=== PATIENT | female | born 1940 | race Caucasian/White ===

== ENCOUNTER 2018-04-21 05:40 | Inpatient (IN) ==
[2018-04-21] MEDS ORDERED: Metoprolol Tartrate 25 MG Tablet PO ONE (06:15)
[2018-04-21] MEDS ORDERED: Chlorhexidine Gluconate 2% 1 Pack (2 Cloths) TOPICAL ONE (06:15)
[2018-04-21] MEDS ORDERED: ceFAZolin 2 GM IV; once IV.SIG ONE (06:30)
[2018-04-21] MEDS ORDERED: Sodium Chlor 0.9% Inj 500 ML IV.SIG SCH (07:00)
[2018-04-21] MEDS ORDERED: Bupivacaine/Epinephrine Inj 0.25% 50 ML Vial ONE (11:31)
[2018-04-21] MEDS ORDERED: ceFAZolin 1 GM Premix Inj 2 GM/100 ML FROZ.PIGGY IV.SIG ONE (11:55)
[2018-04-21] MEDS ORDERED: Morphine Sulfate Inj 2 MG/ML Vial IV.PUSH PRN (13:07)
[2018-04-21] MEDS ORDERED: Promethazine 25 MG Supp RECTAL PRN (13:07)
[2018-04-21] MEDS ORDERED: Post-op Orders (for Pharmacy) OTHER ONE (13:07)
[2018-04-21] MEDS ORDERED: Bisacodyl 10 MG Supp RECTAL PRN (13:07)
[2018-04-21] MEDS ORDERED: fentaNYL Citrate Inj 100 MCG/2 ML Ampul ONE (13:41)
[2018-04-21] MEDS ORDERED: ceFAZolin Inj 1,000 MG in Sodium Chlor 0.9% Inj 100 ML IV.SIG SCH (14:00)
[2018-04-21] MEDS: Sod Chloride 0.9% Inj 1,000 ML IV.CONT SCH (14:04)
[2018-04-21] MEDS ORDERED: *morphine SULFATE 4 MG/ML PERIprocedure ONLY ONE (14:40)
[2018-04-21] MEDS: Senna/Docusate Sodium 8.6/50 MG Tablet PO SCH (20:53)
[2018-04-21] MEDS: Metoprolol Tartrate 50 MG Tablet PO SCH (20:55)
[2018-04-21] MEDS: ceFAZolin 1 GM Premix Inj 1 GM/50 ML FROZ.PIGGY IV.SIG SCH (20:56)
[2018-04-21] MEDS ORDERED: LEVOCETIRIZINE 5 MG PO SCH (21:00)
[2018-04-22] MEDS: ceFAZolin 1 GM Premix Inj 1 GM/50 ML FROZ.PIGGY IV.SIG SCH ×2 (04:44→12:00)
[2018-04-22] MEDS: Sod Chloride 0.9% Inj 1,000 ML IV.CONT SCH ×2 (04:44→10:08)
[2018-04-22] MEDS ORDERED: Lisinopril 20 MG Tablet PO SCH (09:00)
[2018-04-22] MEDS ORDERED: Fenofibrate 145 MG Tablet PO SCH (09:00)
[2018-04-22] MEDS ORDERED: hydroCHLOROthiazide 25 MG Tablet PO SCH (09:00)
[2018-04-22] MEDS: Senna/Docusate Sodium 8.6/50 MG Tablet PO SCH (10:05)
[2018-04-22] MEDS: Metoprolol Tartrate 50 MG Tablet PO SCH (10:06)
--- NOTE | 2018-04-22 16:58 | P.PNGS ---
Subjective Patient reports: tolerating liquids well (Mild nausea which is currently well controlled, denies palpitations, chest pain or shortness of breath above baseline. ), no flatus Physical Exam Vital signs: Vital Signs 04/21/18 20:00 04/22/18 00:00 04/22/18 04:00 Temperature 97.2 F L 97.5 F L 97.9 F Pulse Rate 55 L 58 L 58 L Respiratory Rate 16 16 16 Blood Pressure 148/65 H 146/67 H 131/61 Pulse Oximetry 93 L 93 L 94 L 04/22/18 07:56 04/22/18 11:21 04/22/18 11:53 Temperature 97.9 F 97.3 F L Pulse Rate 51 L 53 L 55 L Respiratory Rate 18 18 18 Blood Pressure 121/60 130/61 Pulse Oximetry 93 L 93 L 04/22/18 16:00 04/22/18 16:27 Temperature 97.7 F Pulse Rate 56 L Respiratory Rate 18 Blood Pressure 139/65 Pulse Oximetry 93 L 96 Intake & Output 04/21/18 04/22/18 04/22/18 18:59 06:59 18:59 Intake Total 1700 / 1700 1650 / 1650 1100 / 1100 Output Total 10 / 10 Balance 1690 / 1690 1650 / 1650 1100 / 1100 Weight 105.5 kg Intake: IV 1050 / 1050 1050 / 1050 1100 / 1100 NS Inj 1,000 ML @ 100 mls/hr IV 1000 / 1000 1000 / 1000 .CONT .Q10H [facility] Rx#:[id number] LR 1000 mL Inj 1,000 ML @ 30 1000 / 1000 mls/hr IV.SIG .Q24H [facility] Rx#: [id number] Ancef 1 GM Premix Inj 1 gm In 50 / 50 100 / 100 50 ml @ 100 mls/hr IV.SIG Q8H [facility] Rx#:[id number] Ancef 2 GM Premix Inj 2 gm In 50 / 50 50 ml @ 100 mls/hr IV.SIG ONCE ONE Rx#:[id number] Oral 450 / 450 600 / 600 Anesthesia Amount 200 / 200 Output: Urine 0 / 0 Estimated Blood Loss 10 / 10 Other: # Voids 2 4 # Bowel Movements 0 - Constitutional no acute distress - Routine Neck Exam Present: supple - Routine Respiratory Exam Present: CTA bilaterally - Routine Cardiovascular Exam Present: RRR, S1, S2 - Routine Abdominal Exam Present: soft Comments: mildly distended, laproscopic sites intact, normal post operative pain. Assessment and Plan - Plan POD #1 laproscopic removal of gastric band Tolerating full liquids well Ambulate, IS and SCD's discharge home today. Code Status: full Discussed Condition With: patient and
== END 2018-04-22 19:22 | disposition home or self-care (01) ==
LOC: HSDI 05:40 → N07 15:47
PROVIDERS: ADMIT Surgery; ATTEND Surgery